=== PATIENT | male | born 1965 | race Caucasian/White ===

== ENCOUNTER 2018-10-14 18:59 | Emergency (ER) | payer OTHER ==
[2018-10-14 21:44] LABS: ADD MAN DIFF? NO
[2018-10-14 21:45] LABS: WHITE BLOOD COUNT 10.5 10^3/ul (4.8-10.8)
[2018-10-14 21:45] LABS: BASOPHIL # 0.1 10^3/ul (0.0-0.1); BASOPHILS % 0.5 % (0.0-2.0); EOSINOPHILS # 0.1 10^3/ul (0.0-0.5); EOSINOPHILS % 1.1 % (0.0-7.0); HEMATOCRIT 42.4 % (42.0-52.0); HEMOGLOBIN 14.3 g/dl (14.0-18.0); LYMPHOCYTES # 3.3 10^3/ul (0.8-2.9); LYMPHOCYTES % 31.5 % (15.0-51.0); MEAN CORPUSCULAR HEMOGLOBIN 28.6 pg (29.0-33.0); MEAN CORPUSCULAR HGB CONC 33.7 g/dl (32.0-37.0); MEAN CORPUSCULAR VOLUME 84.8 fl (82.0-101.0); MEAN PLATELET VOLUME 11.1 fl (7.4-10.4); MONOCYTE # 0.8 10^3/ul (0.3-0.9); MONOCYTES % 7.6 % (0.0-11.0); NEUTROPHIL # 6.2 10^3/ul (1.6-7.5); PLATELET COUNT 236 10^3/UL (140-415); RED CELL DISTRIBUTION WIDTH 11.8 % (11.5-14.5)
[2018-10-14 22:15] LABS: ALANINE AMINOTRANSFERASE 24 IU/L (13-69); ALBUMIN 4.6 g/dl (3.3-4.9); ALBUMIN/GLOBULIN RATIO 1.43; ALKALINE PHOSPHATASE 79 IU/L (42-121); ANION GAP 11 (5-13); ASPARTATE AMINO TRANSFERASE 28 IU/L (15-46); BILIRUBIN,INDIRECT 0.1 mg/dl (0-1.1); BILIRUBIN,TOTAL 0.1 mg/dl (0.2-1.3); BLOOD UREA NITROGEN 16 mg/dl (7-20); CALCIUM 10.1 mg/dl (8.4-10.2); CARBON DIOXIDE 25 mmol/L (21-31); CHLORIDE 100 mmol/L (97-110); CREATININE 0.71 mg/dl (0.61-1.24); Estimated GFR > 60 mL/min (>60); GLUCOSE 173 mg/dl (70-220); POTASSIUM 4.2 mmol/L (3.5-5.1); SODIUM 136 mmol/L (135-144); TOTAL PROTEIN 7.8 g/dl (6.1-8.1)
== END 2018-10-14 22:42 | disposition home or self-care (01) ==
LOC: FTE 18:59
DX: F41.9 Anxiety disorder, unspecified (principal)
CPT/HCPCS: 80053; 85025; 99283

== ENCOUNTER 2018-10-25 18:19 | Emergency (ER) | payer OTHER ==
[2018-10-25 22:32] LABS: URINE PH (Dip) POC 5.5 (5.0-8.5)
[2018-10-25 22:32] LABS: URINE BLOOD (Dip) POC Negative (NEGATIVE); URINE KETONES (Dip) POC Trace (NEGATIVE); URINE LEUKOCYTE EST (Dip) POC Negative (NEGATIVE); URINE NITRITE (Dip) POC Negative (NEGATIVE); URINE TOTAL PROTEIN POC Negative (NEGATIVE)
[2018-10-25] MEDS: LORAZEPAM 1 MG TAB PO (22:41)
[2018-10-25] MEDS: SOD CHLORIDE 0.9% 1,000 ML IV (23:03)
[2018-10-25 23:16] LABS: ADD MAN DIFF? NO
[2018-10-25 23:17] LABS: BASOPHILS % 0.4 % (0.0-2.0); EOSINOPHILS # 0.2 10^3/ul (0.0-0.5); EOSINOPHILS % 1.6 % (0.0-7.0); HEMATOCRIT 40.8 % (42.0-52.0); HEMOGLOBIN 13.6 g/dl (14.0-18.0); LYMPHOCYTES # 3.4 10^3/ul (0.8-2.9); LYMPHOCYTES % 36.3 % (15.0-51.0); MEAN CORPUSCULAR HEMOGLOBIN 28.5 pg (29.0-33.0); MEAN CORPUSCULAR HGB CONC 33.3 g/dl (32.0-37.0); MEAN CORPUSCULAR VOLUME 85.4 fl (82.0-101.0); MONOCYTE # 0.8 10^3/ul (0.3-0.9); MONOCYTES % 8.6 % (0.0-11.0); NEUTROPHIL # 4.9 10^3/ul (1.6-7.5); NEUTROPHILS % 52.8 % (39.0-77.0); PLATELET COUNT 244 10^3/UL (140-415); RED BLOOD COUNT 4.78 10^6/ul (4.70-6.10); RED CELL DISTRIBUTION WIDTH 11.6 % (11.5-14.5)
[2018-10-25 23:17] LABS: WHITE BLOOD COUNT 9.3 10^3/ul (4.8-10.8)
[2018-10-25 23:34] LABS: ALANINE AMINOTRANSFERASE 28 IU/L (13-69); ALBUMIN 4.4 g/dl (3.3-4.9); ALBUMIN/GLOBULIN RATIO 1.41; ALKALINE PHOSPHATASE 63 IU/L (42-121); ANION GAP 11 (5-13); ASPARTATE AMINO TRANSFERASE 25 IU/L (15-46); BLOOD UREA NITROGEN 17 mg/dl (7-20); CALCIUM 9.9 mg/dl (8.4-10.2); CARBON DIOXIDE 25 mmol/L (21-31); CHLORIDE 97 mmol/L (97-110); CREATININE 0.79 mg/dl (0.61-1.24); Estimated GFR > 60 mL/min (>60); GLUCOSE 307 mg/dl (70-220); POTASSIUM 4.2 mmol/L (3.5-5.1); SODIUM 133 mmol/L (135-144); TOTAL PROTEIN 7.5 g/dl (6.1-8.1)
[2018-10-26 01:18] LABS: TROPONIN-I < 0.012 ng/ml (0.000-0.120)
== END 2018-10-26 01:41 | disposition home or self-care (01) ==
LOC: FTE 10-26 01:41
DX: F41.9 Anxiety disorder, unspecified (principal); E11.65 Type 2 diabetes mellitus with hyperglycemia; I10 Essential (primary) hypertension; Z79.4 Long term (current) use of insulin; Z79.82 Long term (current) use of aspirin
CPT/HCPCS: 36415; 80053; 81003; 82962; 84484; 85025; 93005; 99284-25

== ENCOUNTER 2019-02-16 15:18 | Emergency (ER) | payer OTHER ==
[2019-02-16] MEDS: HYDROmorphONE 1 MG/ML SYG IV (17:00)
[2019-02-16] MEDS: ONDANSETRON 4 MG INJ IV (17:00)
[2019-02-16 17:02] LABS: ADD MAN DIFF? NO
[2019-02-16 17:03] LABS: WHITE BLOOD COUNT 7.6 10^3/ul (4.8-10.8)
[2019-02-16 17:03] LABS: BASOPHILS % 0.5 % (0.0-2.0); EOSINOPHILS # 0.2 10^3/ul (0.0-0.5); HEMATOCRIT 41.6 % (42.0-52.0); HEMOGLOBIN 13.9 g/dl (14.0-18.0); LYMPHOCYTES # 2.4 10^3/ul (0.8-2.9); LYMPHOCYTES % 31.1 % (15.0-51.0); MEAN CORPUSCULAR HEMOGLOBIN 28.8 pg (29.0-33.0); MEAN CORPUSCULAR HGB CONC 33.4 g/dl (32.0-37.0); MEAN CORPUSCULAR VOLUME 86.1 fl (82.0-101.0); MEAN PLATELET VOLUME 11.2 fl (7.4-10.4); MONOCYTE # 0.6 10^3/ul (0.3-0.9); MONOCYTES % 8.1 % (0.0-11.0); NEUTROPHIL # 4.4 10^3/ul (1.6-7.5); NEUTROPHILS % 57.8 % (39.0-77.0); PLATELET COUNT 190 10^3/UL (140-415); RED BLOOD COUNT 4.83 10^6/ul (4.70-6.10); RED CELL DISTRIBUTION WIDTH 12.1 % (11.5-14.5)
[2019-02-16 17:24] LABS: ALANINE AMINOTRANSFERASE 31 IU/L (13-69); ALKALINE PHOSPHATASE 70 IU/L (42-121); ANION GAP 9 (5-13); ASPARTATE AMINO TRANSFERASE 23 IU/L (15-46); BILIRUBIN,INDIRECT 0.4 mg/dl (0-1.1); BILIRUBIN,TOTAL 0.4 mg/dl (0.2-1.3); BLOOD UREA NITROGEN 20 mg/dl (7-20); CALCIUM 9.1 mg/dl (8.4-10.2); CARBON DIOXIDE 27 mmol/L (21-31); CHLORIDE 105 mmol/L (97-110); Estimated GFR > 60 mL/min (>60); GLUCOSE 287 mg/dl (70-220); LIPASE 157 U/L (23-300); POTASSIUM 4.3 mmol/L (3.5-5.1); SODIUM 141 mmol/L (135-144); TOTAL PROTEIN 7.1 g/dl (6.1-8.1)
[2019-02-16 17:25] LABS: ALBUMIN/GLOBULIN RATIO 1.29
[2019-02-16] MEDS: IODIXANOL LOCM 100 ML BTL (18:25)
[2019-02-16] MEDS: SOD CHLORIDE 0.9% 100 ML (18:25)
== END 2019-02-16 20:18 | disposition home or self-care (01) ==
LOC: E/R 15:18
DX: R07.89 Other chest pain (principal); E11.9 Type 2 diabetes mellitus without complications; Z79.4 Long term (current) use of insulin; Z79.82 Long term (current) use of aspirin
CPT/HCPCS: 36415; 74177; 80053; 83690; 85025; 96374; 96375; 99285-25

== ENCOUNTER 2019-03-24 17:28 | Emergency (ER) | payer OTHER ==
[2019-03-24] MEDS: ONDANSETRON 4 MG INJ IV (19:29)
[2019-03-24] MEDS: morphine 4 MG/ML VIAL IV (19:29)
[2019-03-24 19:54] LABS: ADD MAN DIFF? NO
[2019-03-24 19:56] LABS: BASOPHILS % 0.5 % (0.0-2.0); EOSINOPHILS # 0.1 10^3/ul (0.0-0.5); EOSINOPHILS % 1.7 % (0.0-7.0); HEMATOCRIT 42.5 % (42.0-52.0); HEMOGLOBIN 14.2 g/dl (14.0-18.0); LYMPHOCYTES # 2.5 10^3/ul (0.8-2.9); LYMPHOCYTES % 33.5 % (15.0-51.0); MEAN CORPUSCULAR HEMOGLOBIN 28.4 pg (29.0-33.0); MEAN CORPUSCULAR HGB CONC 33.4 g/dl (32.0-37.0); MEAN PLATELET VOLUME 10.5 fl (7.4-10.4); MONOCYTE # 0.8 10^3/ul (0.3-0.9); MONOCYTES % 10.1 % (0.0-11.0); NEUTROPHIL # 4.1 10^3/ul (1.6-7.5); NEUTROPHILS % 53.8 % (39.0-77.0); PLATELET COUNT 209 10^3/UL (140-415); RED CELL DISTRIBUTION WIDTH 12.2 % (11.5-14.5)
[2019-03-24 19:56] LABS: WHITE BLOOD COUNT 7.5 10^3/ul (4.8-10.8)
[2019-03-24 20:00] LABS: ADD UMIC NO; UR ASCORBIC ACID NEGATIVE (NEGATIVE); UR BILIRUBIN (Dip) NEGATIVE (NEGATIVE); UR BLOOD (Dip) NEGATIVE (NEGATIVE); UR CLARITY CLEAR (CLEAR); UR COLOR STRAW (YELLOW); UR GLUCOSE (Dip) 3+ mg/dL (NEGATIVE); UR KETONES (Dip) NEGATIVE (NEGATIVE); UR LEUKOCYTE ESTERASE (Dip) NEGATIVE Leu/ul (NEGATIVE); UR NITRITE (Dip) NEGATIVE (NEGATIVE); UR SPECIFIC GRAVITY (Dip) 1.017 (1.003-1.030); UR TOTAL PROTEIN (Dip) NEGATIVE (NEGATIVE); UR UROBILINOGEN (Dip) NEGATIVE (NEGATIVE)
[2019-03-24] MEDS: SOD CHLORIDE 0.9% 1,000 ML IV (20:13)
[2019-03-24 20:15] LABS: ALANINE AMINOTRANSFERASE 30 IU/L (13-69); ALBUMIN 4.3 g/dl (3.3-4.9); ALKALINE PHOSPHATASE 58 IU/L (42-121); AMYLASE 88 U/L (11-123); ANION GAP 10 (5-13); ASPARTATE AMINO TRANSFERASE 24 IU/L (15-46); BILIRUBIN,INDIRECT 0.3 mg/dl (0-1.1); BILIRUBIN,TOTAL 0.3 mg/dl (0.2-1.3); BLOOD UREA NITROGEN 18 mg/dl (7-20); CALCIUM 9.3 mg/dl (8.4-10.2); CARBON DIOXIDE 25 mmol/L (21-31); CHLORIDE 101 mmol/L (97-110); Estimated GFR > 60 mL/min (>60); GLUCOSE 203 mg/dl (70-220); INR 0.93; LIPASE 195 U/L (23-300); PROTIME 12.6 Sec (11.9-14.9); SODIUM 136 mmol/L (135-144); TOTAL PROTEIN 7.6 g/dl (6.1-8.1)
[2019-03-24 20:16] LABS: PARTIAL THROMBOPLASTIN TIME 25.4 Sec (23.0-35.0)
[2019-03-24 20:22] LABS: POTASSIUM 4.2 mmol/L (3.5-5.1)
[2019-03-24 20:26] LABS: TROPONIN-I < 0.012 ng/ml (0.000-0.120)
[2019-03-24 20:28] LABS: D-DIMER 262.98 ng/ml (<460)
[2019-03-24] MEDS: LIDOCAINE/MYLANTA 40 ML BTL PO (21:43)
[2019-03-24] MEDS: BELLADONNA/PHENOBARBITAL TAB PO (21:44)
== END 2019-03-24 22:18 | disposition home or self-care (01) ==
LOC: E/R 22:18
DX: R10.11 Right upper quadrant pain (principal); E11.9 Type 2 diabetes mellitus without complications; Z79.4 Long term (current) use of insulin; Z79.82 Long term (current) use of aspirin
CPT/HCPCS: 36415; 80053; 81003; 82150; 83690; 84484; 85025; 85378; 85610; 85730; 99284-25

== ENCOUNTER 2019-06-27 06:16 | Day surgery (SDC) | payer OTHER ==
[2019-06-27] MEDS ORDERED: LIDOCAINE 100 MG SYRINGE (07:49)
[2019-06-27] MEDS ORDERED: PROPOFOL 40 ML (07:49)
[2019-06-27] MEDS ORDERED: FENTAnyl 50 MCG/ML VIAL (07:50)
== END 2019-06-27 13:59 | disposition home or self-care (01) ==
LOC: GIL 06:16
DX: Z12.11 Encounter for screening for malignant neoplasm of colon (principal); K29.30 Chronic superficial gastritis without bleeding; K63.89 Other specified diseases of intestine; B96.81 Helicobacter pylori [H. pylori] as the cause of diseases classified elsewhere; I10 Essential (primary) hypertension; E11.9 Type 2 diabetes mellitus without complications; Z79.82 Long term (current) use of aspirin; Z79.84 Long term (current) use of oral hypoglycemic drugs; Z79.4 Long term (current) use of insulin
CPT/HCPCS: 43239; 82962; 88305; 88312